=== PATIENT | female | born 1975 | race African-American/Black ===

== ENCOUNTER 2018-03-21 11:31 | Emergency (ER) | payer SELFPAY ==
--- OUTSIDE RECORDS SUMMARY | 2018-03-21 11:33 | XMS REPORT ---
Author Author [facility] [place] Address Unknown Phone Unavailable Care Team Providers Care Pocket Marker Name Role Phone Unavailable Unavailable Problems This patient has no known problems. Allergies, Adverse Reactions, Alerts This patient has no known allergies or adverse reactions. Medications This patient has no known medications. Results Test Description Test Time Test Comments Text Results Atomic Results Result Comments BLOOD ALCOHOL (ETOH) 2018-02-12 04:02:00 ALCOHOL BLOOD LEVEL (test code=ALC BLD) 214 MG/DL 0-10 Results are to be used for medical purposes (treatment) only. Not intended for non medical purposes. [id number] 22:57:00* Test Item Value Reference Range Comments SODIUM (test code=NA) 146 MMOL/L 137-145 K+ (test code=KSERUM) 4.5 MMOL/L 3.5-5.1 PLEASE NOTE NEW REFERENCE RANGE(S) IN EFFECT EFFECTIVE 12/19/2009 - NEW ANALYZER ([employer] 5600) CHLORIDE (test code=CL) 115 MMOL/L 98-107 CO2 (test code=CO2) 25 MMOL/L 22-30 BUN (test code=BUN) 4 MG/DL 7-17 CREA (test code=CREA) 0.66 MG/DL 0.7-1.2 GLUCOSE (test code=GLUCOSE) 97 MG/DL 70-99 Fasting glucose normal <100 MG/DL- [place] [employer] recommendation CALCIUM (test code=CABLOOD) 8.8 MG/DL 8.4-10.2 TOTPROT (test code=TOTPROT) 6.9 G/DL 6.3-8.2 ALBUMIN (test code=ALBSERUM) 3.9 G/DL 3.5-5.0 BILITOT (test code=BILITOT) 0.2 MG/DL 0.2-1.3 AST (test code=AST) 36 U/L 15-46 PHOSALK (test code=PHOSALK) 78 U/L 38-126 ALT (test code=ALT) 22 U/L 13-69 GFR (test code=GFR) 126 mL/min/1.73m2 A GFR of >90 mL/min/1.73m2 is considered normal. CREATINE [id number] 22:57:00* Test Item Value Reference Range Comments CK (test code=CK) 70 U/L 30-135 BLOOD ALCOHOL (ETOH)2018-02-11 22:56:00* Test Item Value Reference Range Comments ALCOHOL BLOOD LEVEL (test code=ALC BLD) 336 MG/DL 0-10 RESULTS VERIFIED.C'd TO /er/2255/romo Results are to be used for medical purposes (treatment) only. Not intended for non medical purposes. B-HCG QUAL (KIT)2018-02-11 22:46:00* Test Item Value Reference Range Comments HCGQUAL (test code=HCGQUAL) NEGATIVE NEGATIVE URINE: NEGATIVE=< 20 mIU/ML; POSITIVE=>/=20 mIU/ML SERUM: NEGATIVE=< 10 mIU/ML; POSITIVE=>/=10 mIU/ML SOURCE (test code=SOURCE) U HCG INTERNAL POSITIVE CNTRL (test code=HCGIPC) PASS PASS HCG LOT # (test code=UHCGLOT) [id number] HCG EXPIRATION DATE (test code=UHCGEXP) 4-20 [id number] 22:29:00* Test Item Value Reference Range Comments WBC (test code=WBC) 5.4 K/UL 3.5-10.9 RBC (test code=RBC) 3.43 M/UL 4.0-5.0 HGB (test code=HGB) 11.6 G/DL 11.5-15.5 HCT (test code=HCT) 34.6 % 34-46 MCV (test code=MCV) 100.9 FL 80-98 MCH (test code=MCH) 33.8 PG 28-32 MCHC (test code=MCHC) 33.5 G/DL 32.5-36.5 RDW (test code=RDW) 15.8 % 11.5-14.5 PLT (test code=PLT) 233 K/UL 150-450 MPV (test code=MPV) 10.2 FL 7.4-10.4 MANDIFF (test code=MANDIFF) NO SCAN (test code=SCAN) NO NEUT% (test code=NEUT%) 55.1 % 40-75 LYMPH% (test code=LYMPH%) 36.6 % 24-44 MONO% (test code=MONO%) 7.0 % 0-13 EOS% (test code=EOS%) 0.7 % 0-4 BASO % (test code=BASO%) 0.4 % 0-2 IG (test code=IG) 0 % 0-1 IG% (test code=IG%) 0.2 % 0-1 IG%=Metamyelocytes, Myelocytes, and Promyelocytes. (Immature neutrophils not including "bands".) > 3% IG indicates risk of sepsis NRBC% (test code=NRBC%) 0 /100 WBC ABS NEUT (test code=NEUT) 3.0 K/UL 1.2-7.2 URINE DRUG [id number] 22:06:00* Test Item Value Reference Range Comments AMPHET (test code=BAMP) NEGATIVE NEGATIVE This is an unconfirmed screening. Result are to be used for medical purposes (treatment) only. Not intended for non-medical purposes. Cut-off concentration for a positive result for each drug: Amphetamine - 1,000 ng/ml Barbiturate - 200 ng/ml Benzodiazepine - 200 ng/ml Cannabinoids - 50 ng/ml Cocaine - 300 ng/ml Opiates - 300 ng/ml PCP - 25 ng/ml BARBITURATES (test code=BBAR) NEGATIVE NEGATIVE BENZO (test code=BBENZ) NEGATIVE NEGATIVE CANNABS (test code=BCANN) NEGATIVE NEGATIVE COCAINE (test code=BCOC) NEGATIVE NEGATIVE OPIATES (test code=BOPI) NEGATIVE NEGATIVE PCP (test code=BMTPCP) NEGATIVE NEGATIVE [id number] 21:38:00* Test Item Value Reference Range Comments GLUCOSE (test code=URGLU) NEGATIVE MG/DL NEG-100 BILIRUBN (test code=URBILI) NEGATIVE NEGATIVE KETONE (test code=URKET) NEGATIVE MG/DL NEGATIVE BLOOD (test code=URBLD) NEGATIVE UR PH (test code=URPH) 6.0 5.0-7.5 PROTEIN (test code=URPRO) NEGATIVE MG/DL NEGATIVE NITRITES (test code=URNIT) NEGATIVE NEGATIVE UROBILINGEN (test code=URURO) 0.2 EU/DL 0.2-1.0 LEUKOCYT (test code=URLEU) NEGATIVE NEGATIVE UA COLOR (test code=UA COLOR) YELLOW YELLOW CLARITY (test code=CLARITY) CLEAR CLEAR SP GRAV (test code=URSPGRAV) 1.010 1.000-1.025 UAMICRO (test code=UAMICRO) NO ER SCREEN FOR HIV 12:30:00* Test Item Value Reference Range Comments HIV 1/2 AB (test code=SCRN HIV) NONREACTIVE NONREACTIVE This test is used for SCREENING purposes only. All reactive results are prelimenary and confirmation results will follow. HEPATITIS C ANTIBODY [id number] 04:32:00* Test Item Value Reference Range Comments SCRN HCV (test code=SCRN HCV) NEGATIVE NEGATIVE Hepatitis C Antibody test is for screening purposes only. All reactives will be confirmed by additional testing. CTA [id number] 10:06:[address] [id number] IMAGING REPORTPatient Name: Yani KAN of Service: [id number]: 42 Sex: F Order #: 1300 [facility] 1975 [facility] Number: [id number] Record Number: [id number] Hospital Number: [id number] Physician: BROOKLYNN QUIÑONEZ TANOrdering Physician: BROOKE REID CHEST 01/16/2018 6:44 PMHISTORY: Palpitations . Cardiac palpitations. Shortness of breath.Tachycardia.COMPARISON: NoneTECHNIQUE: IV contrast-enhanced CTA imaging of the chest. Sagittal andcoronal MIP reformatted images are provided from the acquired data set.This CT exam was performed using one or more of the following dosereduction techniques: Automated exposure control, adjustment of the mAand/or KV according to patient size, or use of iterative reconstructiontechnique.FINDINGS:The central airway is midline and patent. The lungs are well-expanded andclear without focal infiltrate, effusion, or pneumothorax.The heart size is normal. There is no pericardial effusion. The pulmonaryarteries are patent and normal in caliber. There is no pulmonary embolism.The thoracic aorta is patent and normal in caliber. There is no aorticaneurysm or dissection. There are no pathologically enlarged mediastinal orhilar lymph nodes.Limited imaging through the upper abdomen reveals no acute abnormality. Thebony thorax is intact without acute abnormality.IMPRESSION:No acute cardiopulmonary process. Specifically, no pulmonary embolism.Randy becker Signed By: David David M.D., 01/17/2018 10:03 AMLegally authenticated Ignacio MOORE 2018-01-17 10:03:48PROBRAIN NATRIURETIC [id number] 17:58:00* Test Item Value Reference Range Comments NT-PROBNP (test code=PROBNP) 331 pg/mL Exclusion for heart failure for patients of all ages is 300 pg/mL. Inclusion for heart failure for patients age <50 is 450 pg/mL; for patients age 50-75 is 900 pg/mL; for patients age >75 is 1800 pg/ mL. [id number] 17:58:00* Test Item Value Reference Range Comments %CKMB (test code=%MB) TNP % UNABLE TO CALCULATE RESULTS DUE TO CKMB <0.22 NG/ML. CKMB (test code=CKMB) <0.22 NG/ML 0.22-2.4 CK (test code=CK) 39 U/L 30-135 CKINTERP (test code=CKINTERP) NEGATIVE Negative PROTHROMBIN TIME WITH [id number] 17:54:00* Test Item Value Reference Range Comments PROTHROMBIN TIME (test code=PT) 12.5 SECONDS 12.0-14.6 INR Usual Range=2 to 3 for prevention of deep vein thrombosis (DVT) INR (test code=INR) 0.9 [id number] 17:54:00* Test Item Value Reference Range Comments PTT (test code=PTT) 24.8 SECONDS 24.4-36.3 HEPARIN THERAPEUTIC RANGE 57-92 SECONDS BMP, BASIC METABOLIC [id number] 17:41:00* Test Item Value Reference Range Comments SODIUM (test code=NA) 134 MMOL/L 137-145 K+ (test code=KSERUM) 4.1 MMOL/L 3.5-5.1 PLEASE NOTE NEW REFERENCE RANGE(S) IN EFFECT EFFECTIVE 12/19/2009 - NEW ANALYZER ([employer] 56[employer]) CHLORIDE (test code=CL) 104 MMOL/L 98-107 CO2 (test code=CO2) 20 MMOL/L 22-30 BUN (test code=BUN) 6 MG/DL 7-17 CREA (test code=CREA) 0.8 MG/DL 0.7-1.2 GLUCOSE (test code=GLUCOSE) 116 MG/DL 70-99 Fasting glucose normal <100 MG/DL- [place] [employer] recommendation CALCIUM (test code=CABLOOD) 10.2 MG/DL 8.4-10.2 GFR (test code=GFR) 101 mL/min/1.73m2 A GFR of >90 mL/min/1.73m2 is considered normal. D-DIMER, [id number] 17:40:00* Test Item Value Reference Range Comments D-DIMER (test code=DDIMER) 0.78 ug/mL (FEU) 0.27-0.50 VALUES OF QUANTITATIVE D-DIMER LESS THAN 0.4 UG/ML HAVE BEEN REPORTED TO BE ASSOCIATED WITH A LOW PROBABILITY OF DEEP VEIN THROMBOSIS/PULMONARYEMBOLISM. THIS TEST ALONE SHOULD NOT BE USED TO RULE OUT DVT/PE. [id number] 17:25:00* Test Item Value Reference Range Comments WBC (test code=WBC) 12.1 K/UL 3.5-10.9 RBC (test code=RBC) 3.77 M/UL 4.0-5.0 HGB (test code=HGB) 13.1 G/DL 11.5-15.5 HCT (test code=HCT) 38.2 % 34-46 MCV (test code=MCV) 101.3 FL 80-98 MCH (test code=MCH) 34.7 PG 28-32 MCHC (test code=MCHC) 34.3 G/DL 32.5-36.5 RDW (test code=RDW) 14.1 % 11.5-14.5 PLT (test code=PLT) 189 K/UL 150-450 MPV (test code=MPV) 11.1 FL 7.4-10.4 MANDIFF (test code=MANDIFF) NO SCAN (test code=SCAN) NO NEUT% (test code=NEUT%) 79.8 % 40-75 LYMPH% (test code=LYMPH%) 15.5 % 24-44 MONO% (test code=MONO%) 4.0 % 0-13 EOS% (test code=EOS%) 0.2 % 0-4 BASO % (test code=BASO%) 0.1 % 0-2 IG (test code=IG) 0 % 0-1 IG% (test code=IG%) 0.4 % 0-1 IG%=Metamyelocytes, Myelocytes, and Promyelocytes. (Immature neutrophils not including "bands".) > 3% IG indicates risk of sepsis ABS NEUT (test code=NEUT) 9.6 K/UL 1.2-7.2 CHEST 1 VIEW [id number] 17:06:00[place] [id number] IMAGING REPORTPatient Name: Yani KAN of Service: [id number]: 42 Sex: F Order #: 1100 [facility] 1975 [facility] Number: [id number] Record Number: [id number] Hospital Number: [id number] Physician: BROOKLYNN QUIÑONEZ TANGreg Physician: IRIS REID UPRIGHT PORTABLE CHEST at 1652 hours January 16, 2018:CLINICAL HISTORY: Abnormal heart rate; anxietyTECHNIQUE: One viewFINDINGS:There are monitor leads seen on the chest.The heart and pulmonary vasculature are normal, and the lungs are clear.The mediastinal structures and bony thorax are normal.IMPRESSION:Normal chest.Electronically Signed By: Mich Johnson M.D., 01/16/2018 5:04 PMLegally authenticated by LUIS Reece 2018-01-16 17:04:32CHEST 1 VIEW [id number] 15:29:[address] [id number] IMAGING REPORTPatient Name: Yani KAN of Service: [id number]: 41 Sex: F Order #: 1000 Room: QERDOB: 1975 X-Ray Number: [id number] Record Number: [id number] Hospital Number: [id number] Physician: LEXA NÚÑEZ Physician: LEXA NÚÑEZ one view 03/30/2017 at 1517 hoursHistory: Tachycardia, shortness of breathComparison: NoneCardiac, hilar, and mediastinal structures are normal. Lungs arewell-aerated and clear. No acute bony or soft tissue abnormalities areidentified.Impression:Clear chest.Electr onically Signed By: Lei Noguera M.D., 03/30/2017 3:27 PMLegally authenticated by LIDIA SUGGS 2017-03-30 15:27:09
[2018-03-21] MEDS ORDERED: METOPROLOL (11:39)
[2018-03-21] MEDS ORDERED: ASPIR 8181 MG PO (11:39)
[2018-03-21 12:04] LABS: BASOPHILS % 0.2 % (0.0-1.0); EOSINOPHILS # (AUTO) 0.1 (0.0-0.4); HEMATOCRIT 32.1 % (34.2-44.1); HEMOGLOBIN 10.1 g/dL (12.0-16.0); LYMPHOCYTES # (AUTO) 2.4 (1.0-3.2); LYMPHOCYTES % 22.6 % (18.0-39.1); MEAN CORPUSCULAR HEMOGLOBIN 32.8 pg (28-32); MEAN CORPUSCULAR HGB CONC 31.5 g/dL (31-35); MEAN CORPUSCULAR VOLUME 104.2 fL (81-99); MONOCYTES # (AUTO) 0.9 (0.2-0.8); MONOCYTES % 8.2 % (4.4-11.3); NEUTROPHILS # (AUTO) 7.1 (2.1-6.9); NEUTROPHILS % 67.6 % (38.7-80.0); PLATELET COUNT 352 x10e3/uL (140-360); RED BLOOD COUNT 3.08 x10e6/uL (3.6-5.1); RED CELL DISTRIBUTION WIDTH 17.8 % (11.7-14.4)
[2018-03-21 12:30] LABS: INR 0.9; PARTIAL THROMBOPLASTIN TIME 31.3 seconds (23.8-35.5)
--- NOTE | 2018-03-21 12:36 | Diagnostic Imaging Report ---
Examination: Single AP view of the chest. COMPARISON: None. INDICATION: Swelling and edema DISCUSSION: Lines/tubes: None. Lungs: The lungs are well inflated and clear. No pneumonia or pulmonary edema. Pleura: No pleural effusion or pneumothorax. Heart and mediastinum: The heart and the mediastinum are unremarkable. Bones and soft tissues: No acute bony abnormalities. IMPRESSION: 1. No acute cardiopulmonary abnormalities. Signed by: Dr. Stuart Beaulieu M.D. on 03/21/2018 12:33 PM
[2018-03-21 12:39] LABS: ALANINE AMINOTRANSFERASE 9 IU/L (0-55); ALBUMIN 3.5 g/dL (3.5-5.0); ALBUMIN/GLOBULIN RATIO 0.9 (0.8-2.0); ALKALINE PHOSPHATASE 48 IU/L (40-150); ANION GAP 12.2 mmol/L (8-16); BLOOD UREA NITROGEN 11 mg/dL (7-26); BUN/CREATININE RATIO 15 (6-25); CALCIUM 10.2 mg/dL (8.4-10.2); CARBON DIOXIDE 25 mmol/L (22-29); CHLORIDE 105 mmol/L (98-107); CREATININE, SERUM 0.71 mg/dL (0.57-1.11); EST GLOMERULAR FILTRATION RATE > 60 ML/MIN (60-); GLUCOSE 95 mg/dL (74-118); POTASSIUM 4.2 mmol/L (3.5-5.1); SODIUM 138 mmol/L (136-145)
--- NOTE | 2018-03-21 13:01 | Diagnostic Imaging Report ---
History: Slurred speech for one day Comparison studies: None Technique: Axial images were obtained from the skull base to the vertex. Coronal and sagittal reconstructions obtained from the axial data. Dose modulation, iterative reconstruction, and/or weight based adjustment of the mA/kV was utilized to reduce the radiation dose to as low as reasonably achievable. Findings: Scalp/skull: No abnormalities. No fractures, blastic or lytic lesions. Extra-axial spaces: No masses. No fluid collections. Brain sulci: Appropriate for age. Ventricles: Normal in size and configuration. No hydrocephalus. Parenchyma: No abnormal densities. No masses, hemorrhage, acute or chronic cortical vascular insults. Sellar/suprasellar region: No abnormalities Craniocervical junction: Patent foramen magnum. No Chiari one malformation. IMPRESSION: No abnormalities . Signed by: DR Lenin Amaral M.D. on 03/21/2018 12:57 PM
[2018-03-21 14:17] LABS: BILIRUBIN,URINE NEGATIVE (NEGATIVE); CLARITY,URINE SL CLOUDY (CLEAR); COLOR,URINE RED (YELLOW); KETONES,URINE NEGATIVE (NEGATIVE); LEUKOCYTE ESTERASE ,URINE TRACE (NEGATIVE); NITRITE,URINE POSITIVE (NEGATIVE); PREGNANCY TEST, URINE NEGATIVE (NEGATIVE); PROTEIN,URINE DIPSTICK 2+ (NEGATIVE); URINE UROBILINOGEN 0.2 mg/dL (0.2 - 1)
[2018-03-21] MEDS ORDERED: ASPIRIN 325 MG TAB ONE (14:20)
[2018-03-21 14:27] LABS: BACTERIA,URINE FEW /HPF; RBC,URINE >50 /HPF (0-5)
[2018-03-21 14:30] LABS: EPITHELIAL CELLS,URINE RARE /LPF; WBC,URINE (MAN) 0-5 /HPF (0-5)
[2018-03-21] MEDS ORDERED: FUROSEMIDE 40 MG TAB PO ONE (14:30)
[2018-03-21] MEDS ORDERED: CEFTRIAXONE SOD 1 GM VIAL IV NR (14:30)
[2018-03-21] MEDS ORDERED: ASPIRIN 325 MG TAB PO ONE (14:45)
== END 2018-03-21 16:25 | disposition home or self-care (01) ==
LOC: ER 11:31
DX: R60.0 Localized edema (principal); N39.0 Urinary tract infection, site not specified; N30.90 Cystitis, unspecified without hematuria; I48.91 Unspecified atrial fibrillation; F32.9 Major depressive disorder, single episode, unspecified
CPT/HCPCS: 36415; 70450; 71045; 80053; 81001; 81025; 83880; 85025; 85610; 85730; 93005; 99284; J0696